=== PATIENT | female | born 1975 | race African-American/Black ===

== ENCOUNTER 2020-07-18 10:04 | Observation (INO) | payer OTHER, SELFPAY ==
[2020-07-18] VITALS (7 sets, daily range): BP systolic 96–128; BP diastolic 62–96; PULSE 65–80; RESP 14–23; TEMP 36.6; O2SAT 98–100; BMI 36.7
--- NOTE | ~2020-07-18 | XR_ITS ---
EXAMINATION: XR chest 2V 07/18/2020 10:43 INDICATION: Chest pain and dizziness PROCEDURE: 2 view chest COMPARISON: No prior studies for comparison. FINDINGS: The lungs are clear. The cardiomediastinal silhouette is within normal limits. There are no pleural effusions. There is no pneumothorax suspected. IMPRESSION: 1: NO ACUTE CARDIOPULMONARY DISEASE. Reviewed, dictated and finalized at location A.
--- NOTE | ~2020-07-18 | CT_ITS ---
EXAMINATION: CTA chest PE protocol DATE: 07/18/2020 11:50 CDT INDICATION: Left-sided chest pain TECHNIQUE: Computed tomographic angiography (CTA) of the chest was performed with 100 mL Omnipaque-35 0 intravenous contrast. The dose-length product was 328.15 mGy-cm. Maximum intensity projection 3D-re constructions of the aorta and other arteries were constructed by the technologist on a separate work station. Automated exposure control and iterative reconstruction technique were employed. COMPARISON: None. FINDINGS: The study is technically adequate without evidence for pulmonary embolism. No significant p leural or pericardial effusion. No thoracic lymphadenopathy. No focal airspace consolidation. No susp icious pulmonary nodules or masses. IMPRESSION: 1. No acute cardiopulmonary disease. No evidence for pulmonary embolism. Reviewed, dictated and finalized at location A.
--- NOTE | 2020-07-18 10:09 | ECG_ITS ---
Measurements Intervals [place] Rate: 71 P: 10 MO: 156 QRS: 8 QRSD: 85 T: 9 QT: 352 QTc: 383 Interpretive Statements SINUS RHYTHM BASELINE WANDER- V1-V3 NORMAL ECG Electronically Signed On 07-18-2020 10:13:30 CDT by Ed Turner D.O.
[2020-07-18] MEDS: ASPIRIN 81 MG CHEWABLE TABLET 324 MG PO (10:15)
[2020-07-18 10:28] LABS: Basophils Percent Auto 0.6 % (0.2-1.2); Eosinophils Percent Auto 0.8 % (0-4.4); Hematocrit 37.4 % (37.0-47.0); Hemoglobin 11.4 g/dL (12.0-15.0); Immature Granulocyte Absolute 0.02 K/mm3 (0.00-0.031); Immature Granulocyte Percent A 0.4 % (0-0.5); Lymphocytes Percent Auto 37.6 % (18.3-44.2); Mean Corpuscular HGB Conc 30.5 g/dl (32-36); Mean Corpuscular Hemoglobin 22.7 pg (26-34); Mean Corpuscular Volume 74.5 fl (80-100); Mean Platelet Volume 9.7 fl (7.4-10.4); Monocytes Absolute Auto 0.5 K/mm3 (0.1-0.6); Monocytes Percent Auto 9.4 % (2.6-8.5); Neutrophils Absolute Auto 2.5 K/mm3 (1.3-6.7); Neutrophils Percent Auto 51.2 % (45.5-73.1); Platelet Count Result 346 k/mm3 (150-375); Red Blood Count 5.02 M/mm3 (4.2-5.4); Red Cell Distribution Width 14.3 % (11.5-14.5); White Blood Count 4.8 K/mm3 (4.5-10.0)
[2020-07-18 10:43] LABS: Anion Gap 4 mmol/L (8-16); Blood Urea Nitrogen 14 mg/dL (7-17); Calcium 9.5 mg/dL (8.4-10.2); Carbon Dioxide 29 mmol/L (22-30); Chloride 104 mmol/L (98-107); Estimated CRCL calculation 87 ml/min; Estimated Glomerular Filt Rate > 60; Glucose 97 mg/dL (65-105); Potassium 4.2 mmol/L (3.4-5.0); Sodium 137 mmol/L (137-145)
--- NOTE | 2020-07-18 10:45 | ED.CHESTPAIN ---
HPI - Chest Pain General Chief Complaint: Chest Pain <Norma Oliveira PA-C - Last Filed: 07/18/20 17:00> Stated Complaint: CHEST PAIN X4D <Norma Oliveira PA-C - Last Filed: 07/18/20 17:00> Time Seen by Provider: 07/18/20 10:14 <Norma Oliveira PA-C - Last Filed: 07/18/20 17:00> Source: patient <Norma Oliveira PA-C - Last Filed: 07/18/20 17:00> Mode of arrival: ambulatory <GARRY Ovalles Last Filed: 07/18/20 17:00> Limitations: no limitations <GARRY Ovalles Last Filed: 07/18/20 17:00> History of Present Illness HPI narrative: Patient presents with chief complaint of intermittent left-sided chest pain that began 4 days ago while sitting at rest. Patient states that she is had chest pain a few years ago and when she saw her primary care she was instructed to take a baby aspirin when they presented but she did not have any cardiac work-up to her knowledge. Patient reports the pain feels like a tightening pressure but at times she feels a sharp pain that began radiating down her left arm yesterday evening. Patient denies activity or stresses at the time of the chest pain. She reports she was sitting at rest watching TV. She denies diaphoresis loss of consciousness, palpitations, shortness of breath,, nausea, vomiting associated with her chest pain. She reports last night she began feeling as if her left arm was weight and the left-sided chest pain increased with movement of the left arm so she saw her primary care but missed their return call telling her to go to the ER. She reports they called her this morning and so her son to the ER for evaluation. Patient has a history of prior MO. Patient denies smoking, hormonal therapy, prolonged travel, history of hypertension, diabetes. Patient reports she has history of MIs in both her mother and her father. She reports her father of a heart attack in his 60s and her mother had a heart attack at the age of 99 years old and another in 2002. She reports sometimes when the chest pain is present and she takes a deep breath it worsens. But she denies general feelings of shortness of breath she denies any cough, fever, chills. <Norma Oliveira PA-C - Last Filed: 07/18/20 17:00> Related Data Home Medications: Home Medications Medication Instructions Recorded Confirmed No Home Medications 07/18/20 07/18/20 <Norma Oliveira PA-C - Last Filed: 07/18/20 17:00> Allergies/Adverse Reactions: Allergies Allergy/AdvReac Type Severity Reaction Status Date / Time acetaminophen Allergy Mild Itching Verified 07/18/20 16:19 <Norma Oliveira PA-C - Last Filed: 07/18/20 17:00> Review of Systems Review of Systems: Narrative: CONSTITUTIONAL: Denies fever, chills, or sweats. EYES: Denies visual changes, redness, or discharge. ENT: Denies rhinorrhea, congestion, sore throat, or otalgia. CARDIOVASCULAR: Reports chest pain,Denies palpitations, or edema. RESPIRATORY: Denies cough or dyspnea. GASTROINTESTINAL: Denies abdominal pain, nausea, vomiting, or diarrhea. GENITOURINARY: Denies dysuria or hematuria. SKIN: Denies rash or itching. MUSCULOSKELETAL: Denies back pain, joint pain, or myalgia. NEUROLOGIC: Reports intermittent dizziness with position changes Denies headache, numbness, or weakness. PSYCHIATRIC: Denies anxiety or depression. <Norma Oliveira PA-C - Last Filed: 07/18/20 17:00> [facility] Family History Family History: Family History (Updated 07/18/20 @ 17:45 by Roderick Veras RN) Father Acute myocardial infarction Mother Acute myocardial infarction <Norma Oliveira PA-C - Last Filed: 07/18/20 17:00> Social History Social History: Social History Smoking status: Never smoker Alcohol intake: never Substance use: never Substance use type: does not use Gender identity (if verbalized by the patient): Female Spiritual care concerns: No <Norma Oliveira PA-C - Last Filed: 07/18/20 17
[2020-07-18 10:52] LABS: INR 1.1; Prothrombin Time 13.9 Seconds (11.1-14.7)
[2020-07-18 10:53] LABS: Partial Thromboplastin Time 30.4 SECONDS (22.3-36.8)
[2020-07-18 10:55] LABS: Troponin I < 0.012 ng/mL (0.000-0.034)
--- NOTE | 2020-07-18 11:24 | PC.NURSE ---
ELVIN RAYMUNDO AT BEDSIDE, BEDSIDE REPORT TO FLOYD MARTINEZ AT THIS TIME, HE HAS ASSUMED PT CARE.
[2020-07-18 13:34] LABS: Troponin I < 0.012 ng/mL (0.000-0.034)
[2020-07-18] MEDS: KETOROLAC 15 MG/ML VIAL (*BKC) IV PUSH (14:40)
--- NOTE | 2020-07-18 15:23 | ECG_ITS ---
Measurements Intervals [place] Rate: 54 P: 10 [place]: 175 QRS: 1 QRSD: 90 T: 10 QT: 388 QTc: 370 Interpretive Statements SINUS BRADYCARDIA BORDERLINE ECG Electronically Signed On 07-18-2020 16:08:55 CDT by Ed Turner D.O.
--- NOTE | 2020-07-18 17:15 | ADMGEN ---
This patient, Brandon Hale, was [facility] Patient/family oriented to hospital policies and general routines including ID bracelet, bed and alarms, visiting hours, pain management, procedures, bathroom and other care routines, personal items, smoking policy, room service/diet, and visiting hours. Valuables list has been completed. Information on how to activate the Rapid Response Team has been discussed. Patient/Family are encouraged to report perceived risks to care and to ask questions if they do not understand what they are told or what they should do.
[2020-07-18 17:21] LABS: Troponin I < 0.012 ng/mL (0.000-0.034)
[2020-07-18] MEDS: MORPHINE SULFATE (*CRX) 2 MG/ML INJ IV PUSH (18:13)
[2020-07-19] VITALS: BP 80/59; PULSE 60; RESP 14; TEMP 36.1; O2SAT 98
[2020-07-19 01:21] VITALS: BP 97/69
[2020-07-19 04:00] VITALS: BP 98/63; PULSE 65; RESP 13; O2SAT 100
[2020-07-19 08:00] VITALS: BP 105/72; PULSE 71; PULSE 72; RESP 14; O2SAT 97
--- NOTE | 2020-07-19 08:53 | PM.IMHP ---
H&P: HPI History of Present Illness Date/Time: Date of jkefuun58/23/20 08:53 Chief complaint: chest pain r/o Narrative: Brandon Hale is a 44 year old female without any previous history of cardiac problems and really no significant medical problems who was admitted as a [facility] patient after being seen in the emergency room last evening. The patient states she has had a history of pain that began last week and has been present since then in and ongoing/unremitting fashion. The patient reports a dull to sometimes sharp pain in the left precordium left shoulder and radiating down the left arm the discomfort went began last was much worse if she would take a deep breath in and out so she has been shallow breathing since then to avoid these symptoms. In addition to that any effort to abduct the shoulder would make the pain a lot worse. She did not break out into a sweat with this become short of breath have nausea vomiting Associated with this symptom. Her evaluation in the emergency room was essentially unremarkable she had 2 normal electrocardiograms done and normal biomarkers. She was admitted as a [facility] Pain Center patient. She has no knowledge of or history of hypertension diabetes or dyslipidemia. She does have a history of premature coronary artery disease in her father. The patient is a mother of 2 children and works at a local [employer]. She spoke to her primary care physician yesterday about the symptoms and she was advised to present to the emergency department. She has taken some aspirins at 81 mg several times since the pain began on but no other anti-inflammatory medication. Last evening she received a dose of Toradol as well as I believe a dose of morphine in the emergency department. chest x-ray in the emergency room was unremarkable CTA of the chest was also unremarkable. Review of Systems Constitutional: Constitutional: Reports no additional constitutional complaints Eyes: Eyes: Reports no additional eye complaints ENT: Reports system reviewed and no additional complaints, except as documented Cardiovascular: Cardiovascular: Reports as per HPI Respiratory: Respiratory: Reports no additional respiratory complaints Gastrointestinal: Gastrointestinal: Reports no additional gastrointestinal complaints Musculoskeletal: Musculoskeletal: Reports as per HPI Comments: Left shoulder pain with abduction as detailed in the history Neurologic: Reports system reviewed and no additional complaints, except as documented Psychiatric: Psychiatric: Reports no additional psychiatric complaints [facility] Family History Family History (Updated 07/18/20 @ 17:45 by Roderick Veras RN) Father Acute myocardial infarction Mother Acute myocardial infarction Social History Social History Smoking status: Never smoker Alcohol intake: never Substance use: never Substance use type: does not use Living arrangements: alone Gender identity (if verbalized by the patient): Female Spiritual care concerns: No Meds Home Medications and Allergies Home Medications Medication Instructions Recorded Confirmed Type No Home Medications 07/18/20 07/18/20 History Allergies Allergy/AdvReac Type Severity Reaction Status Date / Time acetaminophen Allergy Mild Itching Verified 07/18/20 16:19 Vital Signs Vital Signs - 24 hr 07/18/20 10:10 07/18/20 11:00 07/18/20 14:07 Temperature 36.6 C Pulse Rate 72 65 80 Respiratory Rate 23 H 16 17 Blood Pressure 122/96 H 103/82 128/80 Pulse Oximetry 99 100 99 07/18/20 16:53 07/18/20 17:37 07/18/20 19:59 Temperature Pulse Rate 78 67 68 Respiratory Rate 18 19 14 Blood Pressure 126/77 122/84 96/62 L Pulse Oximetry 99 100 98 07/18/20 20:00 07/19/20 00:00 07/19/20 01:21 Temperature 36.1 C L Pulse Rate 66 60 Respiratory Rate 14 Blood Pressure 80/59 L 97/69 L Pulse Oximetry 98 07/19/20 04:00 07/19/20 08:00
--- NOTE | 2020-07-19 09:57 | PC.NURSE ---
0940-pt given D/C orders and instructions. Questions answered and verbalized understanding. AOx4. Ambulated per request to waiting vehicle. No distress noted or verbalized at time of departure.
== END 2020-07-19 09:40 | disposition home or self-care (01) ==
LOC: ANHED 16:05 → ANHCPC 07-19 09:04
PROVIDERS: Admitting Provider Internal Medicine Cardiovascular Disease; Emergency Provider Emergency Medicine; PCP Family Medicine; Visit Provider Specialist
DX: R07.89 Other chest pain (principal)
CPT/HCPCS: 36415; 71046; 71275; 80048; 84484; 85025; 85380; 85610; 85730; 93005; 96374; 96375; 99285; A9270; G0378; J1885; J2270; Q9967

== ENCOUNTER 2020-08-17 12:54 | Outpatient (CLI) | payer OTHER, SELFPAY ==
--- NOTE | ~2020-08-17 | MR_ITS ---
EXAMINATION: MR shoulder LT wo con DATE: 08/17/2020 14:18 INDICATION: Left shoulder pain. Superior glenoid labrum lesion of left shoulder, initial encounter. TECHNIQUE: Magnetic resonance imaging (MRI) of the left shoulder was performed without intravenous co ntrast. Sequences included axial PD-weighted FS FSE, coronal oblique PD-weighted FS FSE and T2-weight ed FS FSE, and sagittal oblique T2-weighted FS FSE and T1-weighted FSE. COMPARISON: Left shoulder radiographs 08/09/2020 FINDINGS: Coracoacromial arch: The acromion undersurface is curved in morphology (type II). Acromioclavicular joint is normal. There is a physiologic volume of fluid in subacromial/subdeltoid bursa. Rotator cuff: There is moderate supraspinatus and anterior infraspinatus tendinopathy. Teres minor tendon is normal . There is mild subscapularis tendinopathy. No tear. There is no asymmetric fatty atrophy of the rota tor cuff muscle bellies. Biceps tendon and glenoid labrum: Biceps tendon is in bicipital groove. Intra-articular biceps tendon is normal. The glenoid labrum is normal. Fluid: There is no glenohumeral joint effusion. Bones/cartilage: Glenoid cartilage is normal. Humeral head cartilage is normal. IMPRESSION: 1. Moderate rotator cuff tendinopathy. No tear. Reviewed, dictated and finalized at location A.
== END 2020-08-17 12:55 ==
PROVIDERS: PCP Family Medicine; Visit Provider Orthopaedic Surgery
DX: S43.432A Superior glenoid labrum lesion of left shoulder, initial encounter (principal); X58.XXXA Exposure to other specified factors, initial encounter
CPT/HCPCS: 73221

== ENCOUNTER → 2021-02-03 00:46 | Outpatient (CLI) | payer OTHER, SELFPAY ==
[2021-02-03 18:52] LABS: SARS-CoV-2 RNA PCR Negative
== END ==
PROVIDERS: PCP Family Medicine; Visit Provider Orthopaedic Surgery
DX: Z01.812 Encounter for preprocedural laboratory examination (principal); Z20.822 Contact with and (suspected) exposure to COVID-19
CPT/HCPCS: C9803; U0003; U0005

== ENCOUNTER 2021-02-06 01:23 | Day surgery (SDC) | payer OTHER, SELFPAY ==
[2021-01-29 12:39] VITALS: BMI 35.9
[2021-02-06] VITALS (11 sets, daily range): BP systolic 92–135; BP diastolic 51–90; PULSE 49–70; RESP 13–20; TEMP 36.1–36.9; O2SAT 93–100
--- NOTE | 2021-02-06 09:42 | SUR.PREOP ---
Cheryl Dorantes RN discussed patient's recent vag infection on 01-30-21for which she has been on antibiotics, with Dr Payne. Dr Payne wishes to proceed with surgery.
[2021-02-06] MEDS: LACTATED RINGERS 1,000 ML 30 ML IV CONT (11:47)
[2021-02-06] MEDS: KETOROLAC 15 MG/ML VIAL (*BKC) IV PUSH (11:48)
--- NOTE | 2021-02-06 12:22 | WPDANESEPPF ---
Anes - Initial Pre Proc Eval Procedure: Operation Date: 02/06/21 13:00 Proposed Procedures p Left Shoulder Arthroscopic Subacromial Decompression - Maximilian Payne MD Date/Time: 02/06/21 12:22 Surgeon: Maximilian Payne MD Pre Op Diagnosis: impingement syndrome left shoulder Patient Data Age: 45 Gender: F Height: 5 ft 4 in Weight: 95 kg Last Vital Signs Temp 36.9 C 02/06/21 11:58 Pulse 65 02/06/21 11:58 Resp 16 02/06/21 11:58 BP 109/77 02/06/21 11:58 Pulse Ox 98 02/06/21 11:58 Allergies Allergy/AdvReac Type Severity Reaction Status Date / Time cortisone Allergy Intermediate Hives Verified 02/06/21 11:13 acetaminophen Allergy Mild Itching Verified 02/06/21 11:13 codeine Allergy Mild Rash Verified 02/06/21 11:13 Home Medications Medication Instructions Recorded Confirmed Type No Home Medications 02/06/21 02/06/21 History Patient hx anesthesia problems: none Family hx anesthesia problems: none PMFSH Past Medical History Medical History Anterior to posterior tear of superior glenoid labrum of left shoulder Atypical chest pain Food allergy Seasonal allergies Tendinitis of left rotator cuff Vision changes Surgical History Surgical History History of carpal tunnel release Family History Family History Father Acute myocardial infarction Mother Acute myocardial infarction Father Family history of premature coronary heart disease, Onset Age: 54 Patient's father is Mother Family history of coronary artery disease Other Arthritis Diabetes mellitus Heart disease Hypertension Malignant neoplasm Neuropathy Social History Social History Social History: Single Smoking status: Never smoker Second hand tobacco smoke exposure: No Alcohol intake: current Substance use: never Substance use type: does not use Living arrangements: with family Additional living arrangements comments: pt has her children live with her Gender identity (if verbalized by the patient): Female Spiritual care concerns: No Anes - Eval Final PreProcedure Day of Procedure 02/06/21 12:22 Patient weight: obese Heart: regular rate and rhythm Lungs: clear to auscultation Airway: Mallampati scale class II Neurological: alert and oriented Last oral intake: >/= 8 hours ASA classification: II Emergent: no Anesthetic plan: proceed Anesthesia type and monitoring: general ETT and standard monitoring Informed Consent: The patient's anesthetic plan and its attendant risks and benefits were discussed with the patient/family/POA. Questions were solicited and answers provided to the satisfaction of the patient/family/POA.
--- NOTE | 2021-02-06 12:58 | WPDHPUPDATE1 ---
History and Physical Update Update Date/Time: 02/06/21 12:58 History and Physical has been reviewed, including an updated exam of the patient. There are NO changes in the patient's condition. Risks, benefits, and alternatives have been discussed and questions answered. Patient agrees to proceed with procedure.
--- NOTE | 2021-02-06 13:18 | WPDANESPNB ---
Anes - Peripheral Nerve Block Date/Time: 02/06/21 13:18 I have discussed with the patient/family/POA the placement of a peripheral nerve block for post-operative pain management, including associated risks, benefits, complications, and side effects. Alternative methods of post-operative analgesia were detailed. Questions were solicited and answers provided to the satisfaction of the patient/family/POA. Time-Out: A pre-procedural Time-Out was completed immediately before starting the procedure and confirmed: Patient Identification, Site, Procedure, Patient Position and the Availability of Requisite Equipment. Clinical Indications: Acute post-operative pain management requested by the operative surgeon. Nerve Block Insertion Note Anes-nerve block: interscalene left Patient position: other (sitting) Skin prep: chlorhexidine Needle: 22 gauge, stimulating, insulated echogenic needle. Needle length: 50 mm Technique: nerve stimulation lost at (mA) (0.32) and ultrasound Technique comment: mid2mg [id number] Injectate: bupivacaine 0.5% with epi 5 mcg/ml (30ml no epi) Observations: tolerated well Complications: none Procedure start time:: 1307 Procedure end time:: 131
[2021-02-06] MEDS: ceFAZolin 2 GM/D5W 50 ML 2 GM/50 ML BAG IVPB (13:19)
--- NOTE | 2021-02-06 15:51 | PM.PROC ---
Procedure Note - Detailed Date of procedure: 02/06/21 Pre-op diagnosis: impingement syndrome left shoulder Post-op diagnosis: other (1. Impingement syndrome shoulder) Procedure performed: 1. Arthroscopic limited debridement. 2. Arthroscopic subacromial decompression. Description of procedure: Arthroscopic inspection revealed no significant intra-articular pathology. The subacromial bursa was thickened and there was evidence of impingement with subtle fraying at the superior aspect of the rotator cuff tendon insertion. Complete bursectomy was accomplished followed by subacromial decompression with acromioplasty and coracoacromial ligament release. Anesthesia: GETA and regional Surgeon: Maximilian Payne MD Estimated blood loss (mL): 10 Complications: None Condition: stable Disposition: PACU Findings: Physician physical therapy assistant instructor, Nereida De La Cruz PA-C, required for surgery; including patient positioning, draping, arthroscopic camera operation, maintaining instrument position, wound closure, and dressing and sling placement. Brief history: The patient complained of persistent pain with overhead and reaching activities. Pain persisted despite physical therapy and a cortisone injection. Operative details: Patient was given an interscalene block in the holding area. Preoperative antibiotics were given. The patient was brought to the operating room. Careful positioning in the lateral decubitus position was accomplished. The head neck were carefully positioned. An axillary roll was placed. The shoulder was examined. The shoulder was prepped and draped in the usual sterile fashion. Standard posterior and anterior arthroscopic portals were established. The shoulder was inspected. the glenohumeral joint appeared entirely normal other than hyperemia at the central aspect of the supraspinatus tendon. No tearing and no contracture. Attention was turned to the subacromial space. A complete bursectomy was performed. The supraspinatus showed a small area of very subtle fraying on the superficial aspect of the tendon. No significant structural defects or tearing. The acromion showed downsloping at the anterolateral aspect and evidence of impingement near the coracoacromial ligament attachment. The acromion was clearly visualized. The coracoacromial ligament was released. Careful acromioplasty was performed utilizing views from both lateral and posterior. Loose bone fragments were carefully irrigated from the joint. The arthroscopic instruments were removed. The wounds were closed with interrupted 3-0 Monocryl suture followed by Steri-Strips. A sterile dressing was applied with a sling. The patient was extubated and brought to the recovery room in stable condition. There were no complications.
== END 2021-02-06 17:41 | disposition home or self-care (01) ==
PROVIDERS: PCP Family Medicine; Visit Provider Orthopaedic Surgery
PROC: (CPT 29805; principal; 2021-02-06 13:00)
DX: M75.42 Impingement syndrome of left shoulder (principal); G89.18 Other acute postprocedural pain; E66.9 Obesity, unspecified; Z68.35 Body mass index [BMI] 35.0-35.9, adult
CPT/HCPCS: 29822; 64415; A4565; C9803; J0690; J1170; J1885; J2250; J2405; J2704; J2710; J3010; J7120; U0003; U0005

== ENCOUNTER → 2021-04-13 17:58 | Outpatient (CLI) | payer OTHER, SELFPAY ==
--- NOTE | ~2021-04-13 | MM_ITS ---
EXAMINATION: MM screening gordo BI w iliana HISTORY: Screening mammogram TECHNIQUE: Craniocaudal and mediolateral oblique 3-D tomosynthesis images were obtained and synthetic 2-D images were generated. CAD analysis was submitted and interpreted. COMPARISON: No prior mammogram is available for comparison at this institution. BREAST PARENCHYMAL COMPOSITION: There are scattered areas of fibroglandular density. FINDINGS: There is no evidence of suspicious mass, calcification, or architectural distortion to sugg est malignancy in either breast. There has been no suspicious interval change. IMPRESSION: 1. No mammographic evidence of malignancy. 2. Recommend routine screening mammography in one year. BI-RADS Category 1: Negative Reviewed, dictated and finalized at location A.
== END ==
PROVIDERS: PCP Family Medicine; Visit Provider Family Medicine
DX: Z12.31 Encounter for screening mammogram for malignant neoplasm of breast (principal)
CPT/HCPCS: 77063; 77067

== ENCOUNTER → 2021-11-13 12:16 | Outpatient (CLI) | payer OTHER, SELFPAY ==
--- NOTE | ~2021-11-13 | XR_ITS ---
XR chest 2V DATE: 11/13/2021 12:34 INDICATION: Cough TECHNIQUE: 2 views COMPARISON: 07/18/2020 2 view chest FINDINGS: Normal heart size. No hilar or mediastinal enlargement. No pulmonary infiltrate or consolid ation, pleural effusion or pulmonary vascular congestion or pneumothorax. Included skeletal structure s are unremarkable. IMPRESSION: No active cardiopulmonary disease Reviewed, dictated and finalized at location A. E PAINTER APPRENTICE
== END ==
PROVIDERS: PCP Family Medicine; Visit Provider Nurse Practitioner Gerontology
DX: R05.9 Cough, unspecified (principal)
CPT/HCPCS: 71046

== ENCOUNTER 2022-02-15 12:46 | Outpatient (CLI) | payer OTHER, SELFPAY ==
--- NOTE | 2022-02-19 21:45 | WPDPFTINT ---
PFT Procedure Performed PFT Procedure Performed Spirometry with Pre/Post Bronchodilator Plethysmography (Lung Vol) Diffusing Cap (DLCO) PFT Interpretation DOS: 02/15/2022 REQUESTING: Yanet Holley NP REASON FOR TESTING: Dyspnea; patient had COVID in early 2021 PULMONARY FUNCTION TESTS Results are reliable and reproducible. Spirometry: FEV1 is 84% predicted, 2.03 L, normal. FVC is 111% predicted, 3.31 L, normal. The FEV1/FVC ratio is reduced 61% predicted. No bronchodilator was administered. Lung volumes: Total lung capacity is 104%, 4.49 L, normal. FRC is 86% predicted, 2.12 L, normal. Residual volume 79% predicted, 1.19 L, normal. There is no air trapping. Airway resistance is normal. Diffusion: DLCO is 53% predicted, moderately decreased. DLCO/VA corrects 92% predicted. Flow volume loop: The flow volume loop is reduced in size and has an irregular non-specific shape. IMPRESSION: This pulmonary function test shows a mild obstructive ventilatory impairment with normal lung volumes and a moderate diffusion impairment. This pattern can be seen in patients who have had COVID-19 infection. The decreased diffusion may reflect abnormal oxygen exchange especially with exertion. Consider repeat testing in 6 months to follow the level of impairment. Heather Quevedo MD
== END 2022-02-15 12:47 | disposition home or self-care (01) ==
PROVIDERS: PCP Family Medicine; Visit Provider Nurse Practitioner Gerontology
DX: R06.00 Dyspnea, unspecified (principal); R94.2 Abnormal results of pulmonary function studies
CPT/HCPCS: 94375; 94726; 94729

== ENCOUNTER 2022-03-27 08:43 | Outpatient (CLI) | payer OTHER, SELFPAY ==
--- NOTE | ~2022-03-27 | CT_ITS ---
EXAMINATION:CT chest high resolution [facility] DATE: 03/27/2022 10:00 INDICATION: Other forms of dyspnea. 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 TECHNIQUE: Computed tomography (CT) of the chest was performed without intravenous contrast. Automate d exposure control and iterative reconstruction technique were employed. The dose-length product (DLP ) was 215.68 mGy-cm. COMPARISON: Chest CT 07/18/2020 FINDINGS: There is mild atelectasis bilaterally. A calcified right lung nodule is consistent with old granulomatous disease. No bronchiectasis or honeycombing. No pleural effusion. The heart size is nor mal. No pericardial effusion. The bones are unremarkable. IMPRESSION: 1. No significant chronic interstitial lung disease. Reviewed, dictated and finalized at location A.
--- NOTE | 2022-03-27 12:46 | P.PCNPFT_ITS ---
PFT Procedure Performed PFT Procedure Performed Spirometry with Pre/Post Bronchodilator Flow Vol Loop PFT Interpretation This is a pulmonary function test with pre and post-bronchodilator spirometry. The test was performed and results interpreted in accordance with the 2019 and 2005 ATS/ERS Task Force guidelines respectively using the Global Lung Function Initiative-2012 reference equations. Patient demonstrated good effort and cooperation. Reproducibility criteria were met. The quality of the pre [facility] hodilator spirometry maneuver was Grade B and post bronchodilator spirometry maneuver was Grade B. Findings: Spirometry: the contour of the inspiratory and expiratory flow tracing are normal. The pre bronchodilator FEV1 is 3.49 L, 117% predicted. The pre bronchodilator FEV1 is 2.78 L, 114% predicted. The pre bronchodilator FEV1: FVC ratio was 80%. The post bronchodilator FVC is 3.39 L, representing a 3% decrease. The post bronchodilator FEV1 is 2.41 L, representing a 13% decrease. The post bronchodilator FEV1: FVC ratio 71%. Impression: The spirometry is normal without evidence of an obstructive abnormality. There is no significant improvement after inhaling a single dose of albuterol. A concurrent restrictive abnormality cannot be excluded as lung volumes were not measured. Clinical correlation recommended. There are no prior studies for comparison
== END 2022-03-27 08:44 | disposition home or self-care (01) ==
PROVIDERS: PCP Family Medicine; Visit Provider Internal Medicine Pulmonary Disease
DX: U07.1 COVID-19 (principal); R06.09 Other forms of dyspnea; R06.02 Shortness of breath
CPT/HCPCS: 71250; 94060

== ENCOUNTER → 2022-11-14 12:50 | Outpatient (CLI) | payer OTHER, SELFPAY ==
--- NOTE | ~2022-11-14 | US_ITS ---
EXAMINATION: US thyroid DATE: 11/14/2022 13:05 INDICATION: Goiter. Dyskinesia of the esophagus. TECHNIQUE: Multiple ultrasound images of the thyroid were obtained. COMPARISON: Chest CT 03/27/2022 FINDINGS: The right thyroid lobe measures 4.5 x 1.5 x 1.7 cm. The left thyroid lobe measures 5.9 x 1.7 x 1.8 c m. The thyroid is diffusely heterogeneous and hypoechoic. Vascularity is normal. No discrete nodule. IMPRESSION: 1. 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 Reviewed, dictated and finalized at location A. OMER RELATIONS ADVISOR
== END ==
PROVIDERS: PCP Family Medicine; Visit Provider Family Medicine
DX: E04.9 Nontoxic goiter, unspecified (principal); K22.4 Dyskinesia of esophagus; R07.2 Precordial pain
CPT/HCPCS: 76536

== ENCOUNTER 2022-12-02 14:37 | Emergency (ER) | payer OTHER, SELFPAY ==
[2022-12-02] VITALS (7 sets, daily range): BP systolic 104–144; BP diastolic 74–93; PULSE 49–68; RESP 12–18; TEMP 36.4–36.6; O2SAT 97–100
--- NOTE | ~2022-12-02 | XR_ITS ---
EXAMINATION: XR chest 2V DATE: 12/02/2022 15:29 INDICATION: Wheezing TECHNIQUE: PA and lateral views of the chest are obtained. COMPARISON: 11/13/2021 FINDINGS: The lungs are free of acute opacities. No pleural effusion or pneumothorax. The cardiomedia stinal silhouette is normal. The visualized bones and soft tissues are unremarkable. IMPRESSION: 1. No acute cardiopulmonary abnormality. Reviewed, dictated and finalized at location B. ER LEAF CUTTER LONG
--- NOTE | 2022-12-02 14:37 | ECG_ITS ---
Measurements Intervals [place] Rate: 62 P: 25 MN: 163 QRS: 7 QRSD: 91 T: 26 QT: 374 QTc: 382 Interpretive Statements SINUS RHYTHM LOW-VOLTAGE QRS IN PRECORDIAL LEADS BORDERLINE ECG COMPARED TO ECG 07/18/2020 15:41:39 SINUS RHYTHM NOW PRESENT Electronically Signed On 12-02-2022 16:24:46 PSYCHOLOGIST CLINICAL by Aguilar Gallardo M.D.
[2022-12-02 15:01] LABS: Basophils Percent Auto 0.5 % (0.2-1.2); Eosinophils Absolute Auto 0.1 K/mm3 (0-0.3); Eosinophils Percent Auto 1.4 % (0-4.4); Hematocrit 36.6 % (37.0-47.0); Hemoglobin 11.3 g/dL (12.0-15.0); Immature Granulocyte Absolute 0.01 K/mm3 (0.00-0.031); Immature Granulocyte Percent A 0.2 % (0-0.5); Lymphocytes Absolute Auto 2.42 K/mm3 (0.9-3.2); Lymphocytes Percent Auto 38.1 % (18.3-44.2); Mean Corpuscular HGB Conc 30.9 g/dl (32-36); Mean Corpuscular Hemoglobin 22.9 pg (26-34); Mean Corpuscular Volume 74.2 fl (80-100); Mean Platelet Volume 9.1 fl (7.4-10.4); Monocytes Absolute Auto 0.4 K/mm3 (0.1-0.6); Monocytes Percent Auto 6.9 % (2.6-8.5); Neutrophils Absolute Auto 3.4 K/mm3 (1.3-6.7); Neutrophils Percent Auto 52.9 % (45.5-73.1); Platelet Count Result 336 k/mm3 (150-375); Red Blood Count 4.93 M/mm3 (4.2-5.4); Red Cell Distribution Width 15.3 % (11.5-14.5); White Blood Count 6.4 K/mm3 (4.5-10.0)
[2022-12-02 15:08] LABS: Alanine Aminotransferase 16 U/L (6-35); Alkaline Phosphatase 96 U/L (38-126); Anion Gap 5 mmol/L (8-16); Aspartate Amino Transferase 25 U/L (14-36); Bilirubin,Total 0.6 mg/dL (0.2-1.3); Blood Urea Nitrogen 9 mg/dL (7-17); Calcium 8.9 mg/dL (8.4-10.2); Carbon Dioxide 30 mmol/L (22-30); Chloride 105 mmol/L (98-107); Estimated CRCL calculation 66 ml/min; Estimated Glomerular Filt Rate > 60; Glucose 82 mg/dL (65-110); INR 1.1; Lipase 92 U/L (23-300); Potassium 3.7 mmol/L (3.4-5.0); Prothrombin Time 13.4 Seconds (11.1-14.7); Sodium 140 mmol/L (137-145)
[2022-12-02 15:09] LABS: Partial Thromboplastin Time 30.3 SECONDS (22.3-36.8)
[2022-12-02 15:20] LABS: Troponin I < 0.012 ng/mL (0.000-0.034)
[2022-12-02 15:30] LABS: Microcytosis 1+ (NORMAL); Ovalocytes 1+ (NORMAL); Platelet Estimate Adequate (Adequate); Schistocytes None Seen (NORMAL)
--- NOTE | 2022-12-02 19:36 | ED.CHESTPAIN ---
HPI - Chest Pain General Chief Complaint: Chest Pain Stated Complaint: chest pain Time Seen by Provider: 12/02/22 19:09 History of Present Illness HPI narrative: This is a 47-year-old female with chief complaint of chest pain onset 3 weeks ago and worsened today. She reports the pain has been substernal and on the left side. Severity comes and goes intermittently, but states today has been worse in the past 4 hours. Pain does not radiate. Describes it as a tightness. Pain is nonexertional and seems to be somewhat positional. She does note a family history of NM and CAD. She has no history of heart disease. Endorses shortness of breath that has been going on since having COVID last year. Her PCP has prescribed albuterol and Symbicort for this which helps helps on occasion. She did not take any medications prior to arrival. Denies fevers, chills, abdominal pain, syncope, leg swelling, calf pain. PERC rule negative. Related Data Home Medications Medication Instructions Recorded Confirmed ascorbic acid (vitamin C) 500 mg 250 mg PO DAILY 03/06/22 11/12/22 tablet biotin 1 mg capsule 1 mg PO DAILY 03/06/22 11/12/22 cholecalciferol (vitamin D3) 50 50 mcg PO DAILY 03/06/22 11/12/22 mcg (2,000 unit) capsule cranberry concentrate-ascorbic cap PO 03/06/22 11/12/22 acid 140 mg-100 mg capsule (Cranberry Plus Vitamin C) Allergies Allergy/AdvReac Type Severity Reaction Status Date / Time codeine Allergy Intermediate Rash and Verified 11/19/22 13:37 swelling cortisone Allergy Intermediate Hives Verified 11/19/22 13:37 acetaminophen Allergy Mild Itching Verified 11/19/22 13:37 Review of Systems Review of Systems: CONSTITUTIONAL: Denies fever, chills, or sweats. EYES: Denies visual changes, redness, or discharge. ENT: Denies rhinorrhea, congestion, sore throat, or otalgia. CARDIOVASCULAR: Endorses chest pain. denies palpitations, or edema. RESPIRATORY: Endorses longstanding cough and dyspnea. GASTROINTESTINAL: Denies abdominal pain, nausea, vomiting, or diarrhea. GENITOURINARY: Denies dysuria or hematuria. SKIN: Denies rash or itching. MUSCULOSKELETAL: Denies back pain, joint pain, or myalgia. NEUROLOGIC: Denies headache, numbness, dizziness, or weakness. PSYCHIATRIC: Denies anxiety or depression. [facility] Past Medical History Medical History Anterior to posterior tear of superior glenoid labrum of left shoulder Atypical chest pain Food allergy Seasonal allergies Tendinitis of left rotator cuff Vision changes Surgical History Surgical History History of carpal tunnel release History of shoulder surgery (~02/06/21) Arthroscopic Limited Debridement with Subacromial Decompression - Lt Shoulder Family History Family History Father Acute myocardial infarction Mother Acute myocardial infarction Father Family history of premature coronary heart disease, Onset Age: 54 Patient's father is Mother Family history of coronary artery disease Other Arthritis Diabetes mellitus Heart disease Hypertension Malignant neoplasm Neuropathy Social History Social History Social History: Single Smoking status: Never smoker Second hand tobacco smoke exposure: No Alcohol intake: current Alcohol use details: Occasionally Substance use: never Substance use type: does not use Lack of Transportation: No Lack of Food: Never True Current Housing: I Have Housing Concerned About Future Housing: No Difficulty Paying Gas/Electric Bills: No Difficulty Paying for Meds: No Currently Unemployed: No Education: Bachelor's Degree Difficulty w/ Childcare or Family Care: No Living arrangements: with family Additional living arrangements comments
[2022-12-02] MEDS: ASPIRIN 81 MG CHEWABLE TABLET 324 MG PO (19:46)
[2022-12-02 20:12] LABS: Troponin I < 0.012 ng/mL (0.000-0.034)
[2022-12-02] MEDS: BELLADONNA ALK/PHENOB ELIX 10 ML, MAG HYDROX/ALUMINUM HYD/SIMETH 30 ML, LIDOCAINE HCL 2... PO (20:59)
[2022-12-02] MEDS: NITROGLYCERIN SL 0.4 MG TABLET SUBLINGUAL (21:25)
--- NOTE | 2022-12-02 21:25 | PC.NURSE ---
1st dose SL Nitroglycerine given. Pt rates pain 8/10, described at squeezing . BP 124/91
--- NOTE | 2022-12-02 21:30 | PC.NURSE ---
2nd dose Nitroglycerine given. Pt rates pain 06/05. BP 115/80.
--- NOTE | 2022-12-02 21:32 | PC.NURSE ---
3rd Dose SL Nitroglycerine HELD per ELVIN Perez. BP 103/85. Rates pain /10.
[2022-12-02] MEDS: KETOROLAC 30 MG/ML VIAL (*BKC) IV PUSH (22:14)
== END 2022-12-02 23:20 | disposition home or self-care (01) ==
PROVIDERS: Emergency Medicine; Emergency Provider Physician Assistant; PCP Family Medicine
DX: R07.89 Other chest pain (principal); E06.3 Autoimmune thyroiditis; Z86.16 Personal history of COVID-19
CPT/HCPCS: 36415; 71046; 80053; 83690; 84484; 85025; 85610; 85730; 93005; 96374; 99284; A9270; J1885

== ENCOUNTER 2022-12-23 09:00 | Outpatient (NON) | payer OTHER, SELFPAY | END 2022-12-23 09:01 | disposition home or self-care (01) | LOC: ANHLAB 12-24 07:48 | PROVIDERS: PCP Family Medicine; Visit Provider Internal Medicine Gastroenterology | DX: R07.89 Other chest pain (principal) | CPT/HCPCS: 88305 ==

== ENCOUNTER 2022-12-23 11:01 | Day surgery (SDC) | payer OTHER, SELFPAY ==
[2022-11-18 14:08] VITALS: BMI 34.5
[2022-12-16 08:10] VITALS: BMI 34.3
--- NOTE | 2022-12-23 09:06 | WPDANESEPPF ---
Anes - Initial Pre Proc Eval Procedure: Operation Date: 12/23/22 13:00 Proposed Procedures p Esophagogastroduodenoscopy - Anmol Bergeron MD Date/Time: 12/23/22 09:06 Surgeon: Anmol Bergeron MD Pre Op Diagnosis: Precordial Pain Patient Data Age: 47 Gender: F Height: 1.6 m Weight: 88 kg Allergies Allergy/AdvReac Type Severity Reaction Status Date / Time codeine Allergy Intermediate Rash and Verified 12/16/22 08:08 swelling cortisone Allergy Intermediate Hives Verified 12/16/22 08:08 acetaminophen Allergy Mild Itching Verified 12/03/22 09:50 Home Medications Medication Instructions Recorded Confirmed Type albuterol sulfate 90 mcg/actuation 2 inh inhalation Q4H PRN shortness 11/06/21 12/16/22 Rx aerosol inhaler of breath or wheezing #8.5 grams ascorbic acid (vitamin C) 500 mg 250 mg PO DAILY 03/06/22 12/16/22 History tablet biotin 1 mg capsule 1 mg PO DAILY 03/06/22 12/16/22 History cholecalciferol (vitamin D3) 50 50 mcg PO DAILY 03/06/22 12/16/22 History mcg (2,000 unit) capsule cranberry concentrate-ascorbic 1 cap PO 03/06/22 12/03/22 History acid 140 mg-100 mg capsule (Cranberry Plus Vitamin C) sumatriptan succinate 50 mg tablet See Rx Instructions PO .COMPLEX 09/25/22 12/16/22 Rx #20 tabs omeprazole 40 mg capsule,delayed 40 mg PO DAILY #30 caps 11/12/22 12/16/22 Rx release budesonide-formoterol HFA 80 2 puff inhalation Q12H #10.2 grams 12/03/22 12/16/22 Rx mcg-4.5 mcg/actuation aerosol inhaler (Symbicort) Patient hx anesthesia problems: none Family hx anesthesia problems: none Results Review: All pre-operative results and documents have been reviewed as part of the pre-operative evaluation. [facility] Past Medical History Medical History (Updated 12/23/22 @ 09:07 by Chris Quintero DO) Anterior to posterior tear of superior glenoid labrum of left shoulder Asthma Atypical chest pain Food allergy GERD (gastroesophageal reflux disease) Erika's thyroiditis Seasonal allergies Tendinitis of left rotator cuff Vision changes Surgical History Surgical History History of carpal tunnel release History of shoulder surgery (~02/06/21) Arthroscopic Limited Debridement with Subacromial Decompression - Lt Shoulder Family History Family History Father Acute myocardial infarction Mother Acute myocardial infarction Father Family history of premature coronary heart disease, Onset Age: 54 Patient's father is Mother Family history of coronary artery disease Other Arthritis Diabetes mellitus Heart disease Hypertension Malignant neoplasm Neuropathy Social History Social History Social History: Single Smoking status: Never smoker Second hand tobacco smoke exposure: No Alcohol intake: current Alcohol use details: Occasionally Substance use: never Substance use type: does not use Lack of Transportation: No Lack of Food: Never True Current Housing: I Have Housing Concerned About Future Housing: No Difficulty Paying Gas/Electric Bills: No Difficulty Paying for Meds: No Currently Unemployed: No Education: Bachelor's Degree Difficulty w/ Childcare or Family Care: No Living arrangements: with family Additional living arrangements comments: pt has her children live with her Occupation/Education: occupation Additional occupation/education comments: works at the [employer] Gender identity (if verbalized by the patient): Female Sexual Orientation (if Verbalized by the Patient): Straight or Heterosexual Spiritual care concerns: No Agree to blood products: Yes Anes - Eval Final PreProcedure Day of Procedure 12/23/22 09:06 Patient weight: obese Heart: regular rate and rhythm Lungs: clear to auscultat
--- NOTE | 2022-12-23 11:09 | PM.HPGS ---
History of Present Illness History of Present Illness Consent: Risks, benefits, and alternatives have been discussed and questions answered. Patient agrees to proceed with procedure. Chief complaint: Precordial Pain Narrative: Brandon Hale is a 47 year old female Referred for investigation of atypical chest pain. At times the pain is squeezing. She had gone to the emergency room and was evaluated and felt not to have cardiac problem. EKG was okay. She states that sometimes food does not want to go down. Even morning yogurt and pretzels seems to catch in her throat. Liquids also give her difficulty. She states that recently she is uncomfortable in the chest immediately after her meals. The documentation in the emergency room note states that it was not related particularly to meals but she states that is the pattern she has now. Taking omeprazole for the past 3 or 4 weeks has not helped. Her weight is stable. She denies vomiting Review of Systems Review of Systems: All systems reviewed & are unremarkable except as noted in HPI and below PMFSH Past Medical History Medical History Anterior to posterior tear of superior glenoid labrum of left shoulder Asthma Atypical chest pain Food allergy GERD (gastroesophageal reflux disease) Erika's thyroiditis Seasonal allergies Tendinitis of left rotator cuff Vision changes Surgical History Surgical History History of carpal tunnel release History of shoulder surgery (~02/06/21) Arthroscopic Limited Debridement with Subacromial Decompression - Lt Shoulder Family History Family History Father Acute myocardial infarction Mother Acute myocardial infarction Father Family history of premature coronary heart disease, Onset Age: 54 Patient's father is Mother Family history of coronary artery disease Other Arthritis Diabetes mellitus Heart disease Hypertension Malignant neoplasm Neuropathy Social History Social History Social History: Single Smoking status: Never smoker Second hand tobacco smoke exposure: No Alcohol intake: current Alcohol use details: Occasionally Substance use: never Substance use type: does not use Lack of Transportation: No Lack of Food: Never True Current Housing: I Have Housing Concerned About Future Housing: No Difficulty Paying Gas/Electric Bills: No Difficulty Paying for Meds: No Currently Unemployed: No Education: Bachelor's Degree Difficulty w/ Childcare or Family Care: No Living arrangements: with family Additional living arrangements comments: pt has her children live with her Occupation/Education: occupation Additional occupation/education comments: works at [employer] Gender identity (if verbalized by the patient): Female Sexual Orientation (if Verbalized by the Patient): Straight or Heterosexual Spiritual care concerns: No Agree to blood products: Yes Meds Home Medications and Allergies Home Medications Medication Instructions Recorded Confirmed Type albuterol sulfate 90 mcg/actuation 2 inh inhalation Q4H PRN shortness 11/06/21 12/23/22 Rx aerosol inhaler of breath or wheezing #8.5 grams ascorbic acid (vitamin C) 500 mg 250 mg PO DAILY 03/06/22 12/23/22 History tablet biotin 1 mg capsule 1 mg PO DAILY 03/06/22 12/23/22 History cholecalciferol (vitamin D3) 50 50 mcg PO DAILY 03/06/22 12/23/22 History mcg (2,000 unit) capsule cranberry concentrate-ascorbic 1 cap PO DAILY 03/06/22 12/23/22 History acid 140 mg-100 mg capsule (Cranberry Plus Vitamin C) sumatriptan succinate 50 mg tablet See Rx Instructions PO .COMPLEX 09/25/22 12/23/22 Rx #20 tabs omeprazole 40 mg capsule,delayed 40 mg PO DAILY #30 caps 11/12/22
[2022-12-23 11:50] VITALS: BP 115/88; PULSE 62; RESP 20; TEMP 36.2; O2SAT 100
[2022-12-23] MEDS: LACTATED RINGERS 1,000 ML 150 ML IV CONT (12:20)
[2022-12-23 12:39] VITALS: BP 103/79; PULSE 78; RESP 14; O2SAT 97
[2022-12-23 12:49] VITALS: BP 105/78; PULSE 72; RESP 16; O2SAT 98
[2022-12-23 12:59] VITALS: BP 110/85; PULSE 70; RESP 16; O2SAT 99
--- NOTE | 2022-12-23 13:19 | SUR.PHASEII ---
PT AWAKE AND ALERT. DRESSED AND WAITING FOR RIDE. DENIES PAIN. DRINKING JUICE.
--- NOTE | 2022-12-23 13:35 | WPDANESPN ---
Anes - Prog Note Post-Op Date/Time: 12/23/22 13:35 Cardiovascular status: normal Respiratory status: normal Airway patency: baseline Mental status: baseline Post-Op hydration status: normal Vital Signs: Last Vital Signs Temp 36.2 C L 12/23/22 11:50 Pulse 70 12/23/22 12:59 Resp 16 12/23/22 12:59 BP 110/85 12/23/22 12:59 Pulse Ox 99 12/23/22 12:59 O2 Del Method Room Air 12/23/22 12:59 Pain Score (VAS): 0 I/O: Intake & Output 12/22/22 12/23/22 12/23/22 23:59 07:59 15:59 Intake Total 250 Balance 250 Post-procedural complaints: none Patient Feedback: Patient satisfied with anesthetic care. Other Findings: Patient vital signs back to baseline. Patient denies nausea and vomiting. Patient's pain under control. Patient OK for discharge.
== END 2022-12-23 13:35 | disposition home or self-care (01) ==
PROVIDERS: PCP Family Medicine; Visit Provider Internal Medicine Gastroenterology
PROC: 0DJ08ZZ Inspection of Upper Intestinal Tract, Via Natural or Artificial Opening Endoscopic (ICD-10-PCS; CPT 43235; principal; 2022-12-23 13:00)
DX: R07.89 Other chest pain (principal)
CPT/HCPCS: 43239

== ENCOUNTER 2025-01-12 17:19 | Emergency (ER) | payer OTHER, SELFPAY ==
--- OUTSIDE RECORDS SUMMARY | 2025-01-12 17:22 | XMS_ITS | Clinical Summary ---
Author Organization [facility] Care Team Providers Care Funeral Director/Embalmer Name Role Phone Unavailable Primary Care Provider Unavailabl e Immunizations Immunization Administration Dates Next Due Covid-19, Mrna, Lnp-s, Pf, 30 Mcg/0.3 Ml Dose (Fly marks) 06/13/2021,05/23/2021 Social History Tobacco Use Types Packs/Day Years Used Date Smoking Tobacco: Never Assessed Comments Unknown Sex and Gender Information Value Date Recorded Sex Assigned at Not on file Legal Sex Female 10:34 PM CDT Gender Identity Not on file Sexual Orientation Not on file Plan of Treatment Health Maintenance Due Date Last Done Comments Hepatitis C Virus (HCV) Screening 1977 TdaP Immunization 1977 Hepatitis B Immunization (1 of 3 - 19+ 3-dose series) 1996 Pap Smear 1998 Cervical Cancer Screening (CCS) 2007 HPV/Cotest 2007 Discussion re Starting/Frequency of Mammograms 2017 Colonoscopy 2022 Colorectal Cancer Screening 2022 Influenza Immunization (#1) 2024 SARS-COV-2 Immunization ( season) 2024 06/13/2021, 05/23/2021 Respiratory Syncytial Virus (RSV) Immunization (Adult) (1 - 1-dose 75+ series) 2052 Meningococcal Immunization (ACWY) Aged Out No longer eligible b ased on patient's age to complete this topic Pneumococcal Immunization Combined Aged Out No longer eligible b ased on patient's age to complete this topic Rotavirus Immunization Aged Out No lo nger eligible based on patient's age to complete this topic
[2025-01-12 17:27] VITALS: BP 140/85; PULSE 81; RESP 16; TEMP 36.2; O2SAT 98
[2025-01-12 19:01] VITALS: BP 124/77; PULSE 81; RESP 18; TEMP 36.6; O2SAT 100
--- NOTE | 2025-01-12 22:06 | PC.NURSE ---
Pt ambulatory to triage desk and states she is leaving. Before Rn can advise her to stay to be seen pt was already walking out door. Pt left without being seen at 21:45.
--- OUTSIDE RECORDS SUMMARY | 2025-01-12 22:14 | XMS_ITS | Clinical Summary ---
Author Organization [facility] Care Team Providers Care Administrative Nursing Supervisor Name Role Phone Unavailable Primary Care Provider [...]
== END 2025-01-12 21:45 | disposition left against medical advice (07) ==
PROVIDERS: PCP Family Medicine
DX: M25.50 Pain in unspecified joint (principal)
CPT/HCPCS: 99199

== ENCOUNTER 2025-01-29 07:48 | Outpatient (CLI) | payer OTHER, SELFPAY ==
--- NOTE | ~2025-01-29 | XR_ITS ---
AP view of the pelvis and AP and lateral views of the bilateral hips Clinical history: Pain Findings: No acute fracture or dislocation is seen. Osseous alignment is anatomic. Bilateral hip and SI joint spaces are preserved. Soft tissues are unremarkable. Impression: No significant abnormality is seen. Reviewed, dictated and finalized at location . Impression: No significant abnormality is seen.
--- NOTE | ~2025-01-29 | XR_ITS ---
Lumbosacral Spine: AP and lateral views Clinical History: Pain Findings: The normal lordotic curve is maintained. The vertebral bodies and posterior elements are i ntact. The intervertebral disc spaces are preserved. The sacroiliac joints are normally outlined. Impression: No significant abnormality. Reviewed, dictated and finalized at [facility]. Impression: No significant abnormality.
== END 2025-01-29 07:49 | disposition home or self-care (01) ==
PROVIDERS: PCP Family Medicine; Visit Provider Student in an Organized Health Care Education/Training Program
DX: M25.551 Pain in right hip (principal); M25.552 Pain in left hip; M54.50 Low back pain, unspecified
CPT/HCPCS: 72100; 73521

== ENCOUNTER 2025-02-17 11:48 | Outpatient (CLI) | payer OTHER, SELFPAY ==
[2025-02-17 12:34] LABS: Erythrocyte Sedimentation Rate 19 mm/hr (0-20)
[2025-02-17 13:36] LABS: CRP 1.6 mg/dL (<1.0)
== END 2025-02-17 11:49 | disposition home or self-care (01) ==
LOC: ANHLAB 11:50
PROVIDERS: PCP Family Medicine; Visit Provider Family Medicine
DX: M25.50 Pain in unspecified joint (principal)
CPT/HCPCS: 36415; 85652; 86140

== ENCOUNTER 2025-03-12 08:01 | Outpatient (CLI) | payer OTHER, SELFPAY ==
--- NOTE | ~2025-03-12 | MR_ITS ---
MRI of the right hip Clinical history: Pain Technique: Coronal T1-weighted, T2-weighted, and proton-density fat-sat images, and axial T1-weighted and proton-density fat-sat images were acquired through the pelvis. Coronal T2-weighted images and c oronal, axial, and sagittal proton-density fat-sat images were acquired through the right hip. 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 No subchondral fracture or articular surface collapse evident. No secondary oste oarthritic change evident. Minimal right joint effusion. There is additional extensive marrow edema throughout the right femoral neck region extending into in ferior aspect of the femoral head. No definite acetabular labral tear seen. Visualized musculature about the pelvis and right hip is unremarkable. No muscle atrophy or edema see n. Tendons are intact. No soft tissue mass or fluid collection evident. 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 No articular surface collapse or subchondral fracture e vident. Extensive marrow edema of the right femoral neck. Marrow edema correlates with painful AVN lesion, ho wever the precise etiology/mechanism for the Minimal right hip joint effusion. Marrow edema is unclear. Reviewed, dictated and finalized at location . 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 No articular surface collapse or subchondral fracture evident. Extensive marrow edema of the right femoral neck. Marrow edema correlates with painful AVN lesion, however the precise etiology/mechanism for the Minimal right hip joint effusion. Marrow edema is unclear.
--- OUTSIDE RECORDS SUMMARY | 2025-03-12 08:06 | XMS_ITS | Continuity of Care Document ---
Author Name 2ND.MD Renetta Address [address] [place] [address] Organization Unknown Address [address] [place] [address] Medications No known medications Problems No known problems
--- OUTSIDE RECORDS SUMMARY | 2025-03-12 08:06 | XMS_ITS | Clinical Summary ---
Author Organization [facility] Care Team Providers Care Beater Operator Name Role Phone Unavailable Primary Care Provider [...]
--- OUTSIDE RECORDS SUMMARY | 2025-03-12 08:06 | XMS_ITS | Continuity of Care Document ---
Author Organization [facility] Address [address] [place] [address] Phone Care Team Providers Care Functional Director Name Role Phone Gaby Alfonso DPT Unavailable Unavailable Procedures Procedure Date THERAPEUTIC EXERCISES NEUROMUSCULAR RE-ED MANUAL THERAPY FUNC ACTIVITY 15 MIN HOT/COLD PACK ELECTRIC STIMULATION UNATT THERAPEUTIC EXERCISES NEUROMUSCULAR RE-ED HOT/COLD PACK ELECTRIC STIMULATION UNATT THERAPEUTIC EXERCISES NEUROMUSCULAR RE-ED HOT/COLD PACK PT EVALUATION THERAPEUTIC EXERCISES NEUROMUSCULAR RE-ED HOT/COLD PACK ELECTRIC STIMULATION UNATT Advance Directives Directive Yes / No Effective Date File Name No Information Encounters Encounter Description Practice Location Reason(s) For Visit Diagnoses Date Provider Providers Copied on Encounter [facility] [place] [facility] [place], [place], [id number], [place] tel:[phone] [place] No Information 3 Kaden Griffin. [address] [facility] [address] [facility] [address], [address], [address], [place]. tel: [phone] [facility], [place], [place], [id number], tel:[phone] [place] No Information 2-201 3 Alfonso Gaby. [address] [place] [address], [address], [place], [facility], . tel:[phone] Referring Provider: Kathia Sibley , [address] [facility], [place], [address]. tel:[phone], [id number], tel:[phone] [place] No Information Mar- 0-201 3 Alfonso Gaby. [address] [place] [address], [address], [place], [facility], . [phone] Referring Provider: Kathia Sibley , [address] [facility], [place], [address]. tel:[phone], [id number], tel:[phone] [place] No Information Mar-0 7-201 3 Alfonso Gaby. [address] [place] [address], [address], [facility], . tel:[phone] Referring Provider: Kathia Sibley , [address] [place], [address]. tel:[phone], [id number], tel:[phone] [place] Mar-0 5-201 3 Alfonso Gaby. [address] [place] [address], [address], [place], [facility], . tel:[phone] Referring Provider: Kathia Sibley , [address] [place], [address]. tel:[phone] Family History Family Member Type Diagnosis Age At Onset No Information Payers Payer name Insurance type Covered libertarian ID Marcia leahy(s) [facility] [id number] Social History Type Description Quantity Date Captured Comments Sex Female Smoking Status No Information Chief Complaint And Reason For Visit No Information Reason For Referral Reason For Referral No Information History Of Present Illness Encounter Date Complaint History Of Prese nt Illness No Information Functional Status Date Functional Assessmen t No Information Instructions Date Instruction Additional Infor mation No Information Assessments Type Assessment Date No Information Patient Care Teams Name Effective Dates (start - stop) Status Members No Information
== END 2025-03-12 08:02 | disposition home or self-care (01) ==
PROVIDERS: PCP Family Medicine; Visit Provider Family Medicine
DX: M25.551 Pain in right hip (principal); M87.9 Osteonecrosis, unspecified
CPT/HCPCS: 73721

== ENCOUNTER 2025-03-23 16:42 | Outpatient (CLI) | payer OTHER, SELFPAY ==
--- OUTSIDE RECORDS SUMMARY | 2025-03-23 16:45 | XMS_ITS | Continuity of Care Document ---
Author Organization [facility] Address [address] [place] [address] Phone Care Team Providers Care Retail Sales Professional Name Role Phone Gaby Alfonso DPT Unavailable [...] Diagnoses Date Provider Providers Copied on Encounter [facility] [facility], [place], [place], [id number], [place] tel:[phone] [place] No Information 3 Kaden Griffin. [address] [facility], [address], [place], [address], [place]. tel: [phone] [facility] [address] [facility] [address], [place], [place], [id number], tel:[phone] [place] No Information 2-201 3 Alfonso Gaby. [address] [place] [address], [address], [place], [facility], . tel:[phone] Referring Provider: Kathia Sibley , [address] [facility], [place], [address]. tel:[phone], [id number], tel:[phone] [place] No Information Mar- 0-201 3 Alfonso Gaby. [address] [place] [address], [address], [place], [facility], . [phone] Referring Provider: Kathia Sibley , [address] [facility], [place], [address]. tel:[phone], [id number], tel:[phone] [place] No Information Mar-0 7-201 3 Alfonso Gaby. [address] [place] [address], [address], [facility], . tel:[phone] Referring Provider: Kathia Sibley , [address] [place], [address]. tel:[phone], [id number], tel:[phone] [place] Mar-0 5-201 3 Alfonso Gaby. [address] [place] [address], [address], [place], [facility], . tel:[phone] Referring Provider: Kathia Sibley , [address] [place], [address]. tel:[phone] Family History Family Member Type Diagnosis Age At Onset No Information Payers Payer name Insurance type Covered republican ID Marcia leahy(s) [facility] [id number] Social History Type Description Quantity Date Captured [...]
--- OUTSIDE RECORDS SUMMARY | 2025-03-23 16:45 | XMS_ITS | Clinical Summary ---
Author Organization [facility] Care Team Providers Care Small Electric Engine Technician Name Role Phone Unavailable Primary Care Provider [...]
[2025-03-23 18:03] LABS: Trichomonas Vag PCR DETECTED (NOT DETECTE)
[2025-03-23 18:39] LABS: Chlamydia trachomatis NOT DETECTED (NOT DETECTE); Neisseria gonorrhoeae PCR NOT DETECTED (NOT DETECTE)
== END 2025-03-23 16:43 | disposition home or self-care (01) ==
LOC: ANHLAB 16:43
PROVIDERS: PCP Family Medicine; Visit Provider Student in an Organized Health Care Education/Training Program
DX: Z11.3 Encounter for screening for infections with a predominantly sexual mode of transmission (principal); Z72.51 High risk heterosexual behavior
CPT/HCPCS: 87491; 87591; 87661

== ENCOUNTER 2025-06-07 16:08 | Outpatient (CLI) | payer OTHER, SELFPAY ==
--- NOTE | ~2025-06-07 | US_ITS ---
EXAMINATION:US venous doppler LE RT INDICATION: Right lower extremity swelling TECHNIQUE: Multiple grayscale, color flow and Doppler images of the right lower extremity deep venous systems were obtained and reviewed. COMPARISON:None available at this time FINDINGS: The common femoral, superficial femoral and popliteal veins demonstrate normal respiratory variation, augmentation and compressibility. Color flow is also seen within the posterior tibial, pe roneal, greater saphenous and profunda veins. IMPRESSION: 1: No lower extremity deep venous thrombosis. Reviewed, dictated and finalized at location A.
--- OUTSIDE RECORDS SUMMARY | 2025-06-07 16:12 | XMS_ITS | Clinical Summary ---
Author Organization [facility] Care Team Providers Care Trailer Chief Name Role Phone Unavailable Primary Care Provider [...] Cervical Cancer Screening (CCS) 2007 HPV/Cotest 2007 Cologuard 2022 Colonoscopy 2022 Colorectal Cancer Screening 2022 Immunochemical Fecal Occult Blood 2022 SARS-COV-2 Immunization ( season) 2024 06/13/2021, 05/23/2021 Influenza Immunization (#1) 2025 Respiratory Syncytial Virus (RSV) Immunization (Adult) (1 - 1-dose 75+ series) 2052 Human Papillomavirus (HPV) Immunization Aged Out No longer eligible b ased on patient's age to complete this topic Meningococcal Immunization (ACWY) Aged Out No longer eligible b ased on patient's age to complete this topic Pneumococcal Immunization Combined Aged Out No longer eligible b ased on patient's age to complete this topic Rotavirus Immunization Aged Out No lo nger eligible based on patient's age to complete this topic
--- OUTSIDE RECORDS SUMMARY | 2025-06-07 16:12 | XMS_ITS | Clinical Summary ---
Author Organization [facility] [address] Address [address] [place] [address] Care Team Providers Care Supervisor Cook Room Name Role Phone Drew Chavez MD Primary Care Provider Allergies Active Allergy Reactions Criticality Noted Date Comments Acetaminophen Rash,Unknown Medium 08/07/2015 Acetaminophen-Codeine Opioids - Morphine Analogues Medications HYDROmorphone (DILAUDID) 4 mg tablet Take by mouth every 6 (six) hours as needed 05/06/2025 Active traMADoL (ULTRAM) 50 mg tablet Take by mouth every 6 (six) hours as needed 04/15/2025 Active Active Problems Problem Noted Date Diagnosed Date 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 [address] [place] [address] Discharge Disposition: Discharge to home or self care 05/26/2025 8:00 AM CDT Office Visit [facility] [facility] [address] [place] [id number] Megan Leal PA Bilateral hip pain (Primary Dx); Avascular necrosis of femoral head, unspecified laterality (HCC) 05/26/2025 7:30 AM CDT - 05/26/2025 11:59 PM CDT Hospital Encounter [facility] [address] [facility] [address] [place] Jaffe [id number] Bilateral hip pain Discharge Disposition: Discharge to home or self care from Last 3 Months Surgical History Surgery Date Site/Laterality Comments NE DELIVERY ONLY Section - (Added by Conv) Medical History Medical History Date Comments Restless legs syndrome Restless legs syndrome - (Added by Conv) Sleep disorder Sleep disorder - (Added by Conv) Headache Headache - (Adde d by Conv) Circadian rhythm sleep disor sharif, shift work type Sleep disorder, circadian, s hift work type - (Added by Conv) Family History Medical History Relation Name Comments Sleep apnea Father Obstructive sle ep apnea - (Added by Conv) Diabetes Other Family history of diabetes mellitus - (Added by Conv) Epilepsy Other Family history of epilepsy - (Added by Conv) Hypertension Other Family history of hypertension - (Added by ) Relation Name Status Comments Father Other Social History Tobacco Use Types Packs/Day Years Used Date Smoking Tobacco: Never Smokeless Tobacco: Never Tobacco Cessation:Counseling Given: Not Answered Comments Unknown Sex and Gender Information Value Date Recorded Sex Assigned at Not on file 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 Gender Identity Not on file Sexual Orientation Not on file Obstetrics History Last Filed Vital Signs Vital Sign Reading Time Taken Comments Blood Pressure 120/96 01/01/2022 3:01 PM THERAPY TEACHER Pulse 87 06/23/2015 3:00 PM CDT Temperature - - Respiratory Rate - - Oxygen Saturation 98% 05/17/2015 1:01 PM CDT Inhaled Oxygen Concentration - - Weight 93 kg (205 lb) 05/26/2025 8:27 AM CDT Height 160 cm (5' 3) 05/26/2025 8:27 AM CDT Body Mass Index 36.31 05/26/2025 8:27 AM CDT Plan of Treatment Health Maintenance Due Date Last Done Comments Breast Cancer Screening-Mammogram 1977 Cervical Cancer Screening 1977 Colon Cancer Screening-Colonoscopy 1977 Depression Screening 1977 Hepatitis C Screening 1977 DTaP/Tdap/Td Vaccine (1 - Tdap) 1988 Hepatitis B Screening 1995 Regular Well Visit/Exam 18-64 1995 Covid-19 Vaccine (3 - 2023-2 5 season) 2024 06/13/2021, 05/23/2021 Influenza Vaccine (#1) 2025 Pneumococcal vaccine <65 Aged Out No longer eligible based on patient's age to complete this topic Procedures Procedure Name Priority Date/Time Associated Diagnosis Comments MSK MR OUTSIDE REFERENCE Routine 05/26/2025 9:02 AM CDT XR HIPS BILATERAL W PELVIS 5 OR MORE VIEWS Schedule Routine, Read Routine (OP Routine) 05/26/2025 8:20 AM CDT Bilateral hip pain from Last 3 Months Results * K MR Outside Reference (05/26/2025 9:02 AM CDT) Impressions [facility] - 05/26/2025 9:02 AM CDT These images are for Reference purposes only and have not been reviewed by [facility]. There will be no report generated by a [facility] Radiologist. Narrative [facility]_P[facility] - 05/26/2025 9:02 AM CDT EXAMINATION: Images For Reference Purposes Only us Megan OCONNOR IMG MRI PROCEDURES Fin al Result [facility] * XR Hips Bilateral 5 or More Views W Pelvis (05/26/2025 8:20 AM CDT) Anatomical Region Laterality Modality Lower Extremities, Hip, Pelvis Bilateral C omputed Radiography 05/26/2025 12:1 1 PM CDT Impressions 05/26/2025 12:29 PM CDT 1. Bilateral femoral head avascular necrosis involving essentially the entirety of the articular surfaces without articular surface collapse. Dictated by: Stone aLra MD The radiology attending physician has personally reviewed this study, and had reviewed and/or edited this written report and agrees with it. Electronically signed by: Jon Mondragon M.D. Narrative 05/26/2025 12:29 PM CDT EXAMINATION: XR HIPS BILATERAL 5 OR MORE VIEWS W PELVIS HISTORY: Bilateral hip pain. COMPARISON: Outside MRI 03/12/2025. FINDINGS: 6 radiographs of the pelvis and bilateral hips are submitted for interpretation. Sclerosis of the bilateral femoral heads involving essentially the entirety of the articular surfaces, without articular surface collapse represent avascular necrosis. No acute fracture. Normal alignment. Joint spaces are preserved. Procedure Note Jon Mondragon MD - 05/26/2025 EXAMINATION: XR HIPS BILATERAL 5 OR MORE VIEWS W PELVIS HISTORY: Bilateral hip pain. COMPARISON: Outside MRI 03/12/2025. FINDINGS: 6 radiographs of the pelvis and bilateral hips are submitted for interpretation. Sclerosis of the bilateral femoral heads involving essentially the entirety of the articular surfaces, without articular surface collapse represent avascular necrosis. No acute fracture. Normal alignment. Joint spaces are preserved. IMPRESSION: 1. Bilateral femoral head avascular necrosis involving essentially the entirety of the articular surfaces without articular surface collapse. Dictated by: Stone Lara MD The radiology attending physician has personally reviewed this study, and had reviewed and/or edited this written report and agrees with it. Electronically signed by: Jon Mondragon M.D. Megan OCONNOR IMG XR PROCEDURES Gabby l Result from Last 3 Months Insurance [facility] CHO[facility] PLUS [facility] CHO[facility] PLUS [facility] PLUS Care Teams Supervisor Cook Room Relationship Specialty Start Date End Date Drew Chavez MD [address] [facility] [address] [place] [address] PCP - General Family Medicine 03/16/25
== END 2025-06-07 16:09 | disposition home or self-care (01) ==
PROVIDERS: PCP Family Medicine; Visit Provider Student in an Organized Health Care Education/Training Program
DX: R60.0 Localized edema (principal)
CPT/HCPCS: 93971